=== PATIENT | male | born 1990 | race African-American/Black ===

== ENCOUNTER 2024-09-09 12:43 | Inpatient (IN) | payer MEDICAID, OTHER ==
[~2024-09-09] VITALS: Ht 182.9 cm; Wt 93.2 kg
[~2024-09-09 12:43] MED LIST: BENZ1TAB42 PO; MULTTAB4 PO; RISP1TAB21 PO
[2024-09-09 13:50] LABS: HEMATOCRIT 46.5 % (42.0-52.0); HEMOGLOBIN 15.9 g/dl (13.5-17.5); MEAN CORPUSCULAR HEMOGLOBIN 31.9 pg (27.0-33.0); MEAN CORPUSCULAR HGB CONC 34.2 g/dl (32.0-36.5); MEAN CORPUSCULAR VOLUME 93.2 fl (80.0-96.0); PLATELET COUNT, AUTOMATED 265 10^3/uL (150-450); RED BLOOD COUNT 4.99 10^6/uL (4.30-6.10); WHITE BLOOD COUNT 8.2 10^3/uL (4.0-10.0)
[2024-09-09 14:08] LABS: ETHYL ALCOHOL (ETHANOL) < 0.003 % (0.000-0.010)
[2024-09-09 14:10] LABS: ALBUMIN 4.2 G/DL (3.2-5.2); ALKALINE PHOSPHATASE 48 U/L (40-129); ALT/SGPT 44 U/L (7.0-40); AST/SGOT 32 U/L (<34); BILIRUBIN,DIRECT 0.3 MG/DL (<0.4); BILIRUBIN,TOTAL 0.9 MG/DL (0.3-1.2); BLOOD UREA NITROGEN 12 MG/DL (9-23); CALCIUM LEVEL 10.1 MG/DL (8.5-10.1); CARBON DIOXIDE LEVEL 28 MMOL/L (20-31); CHLORIDE LEVEL 102 MMOL/L (98-107); CREATININE FOR GFR 0.95 MG/DL (0.70-1.30); GLOMERULAR FILTRATION RATE > 60.0 (>60); GLUCOSE, FASTING 99 MG/DL (60-100); POTASSIUM SERUM 4.3 MMOL/L (3.5-5.1); SALICYLATE LEVEL < 3.0 MG/DL (<30); SODIUM LEVEL 137 MMOL/L (136-145); TOTAL PROTEIN 7.4 G/DL (5.7-8.2)
[2024-09-09 14:12] LABS: THYROID STIMULATING HORMONE 1.233 uIU/ML (0.55-4.78)
[2024-09-09 17:37] LABS: AMPHETAMINES LEVEL URINE NEGATIVE (NEGATIVE); BARBITURATES URINE NEGATIVE (NEGATIVE); BENZODIAZEPINES URINE NEGATIVE (NEGATIVE); COCAINE METABOLITE URINE NEGATIVE (NEGATIVE); METHADONE URINE NEGATIVE (NEGATIVE); OPIATES URINE NEGATIVE (NEGATIVE); PHENCYCLIDINE URINE NEGATIVE (NEGATIVE)
[2024-09-09 17:43] LABS: CANNABINOIDS URINE POSITIVE (NEGATIVE)
[2024-09-09] MEDS ORDERED: MAALOX 30 ML SUSP *UDC PO PRN (18:40)
[2024-09-09] MEDS ORDERED: IBUPROFEN 400MG TAB PO PRN (18:40)
[2024-09-09] MEDS ORDERED: MOM 30ML SUSPENSION UDC PO PRN (18:40)
[2024-09-09] MEDS ORDERED: ACETAMINOPHEN 325 MG TAB PO PRN (18:40)
[2024-09-09] MEDS ORDERED: HOME MED LIST COMPLETE! XX SCH (21:25)
[2024-09-09] MEDS: traZODone 50 MG TAB PO PRN (22:43)
[2024-09-09] MEDS: diphenhydrAMINE 25MG CAP PO PRN (22:43)
[2024-09-09] MEDS: OLANZapine ORAL DISINTEGRATING TAB 5MG PO PRN (22:57)
[2024-09-10] MEDS: SODIUM CHLORIDE NASAL 0.65% SPRAY BTL (OCEAN) PRN (08:52)
[2024-09-10 15:32] VITALS: BP 145/83; TEMP 97.2; O2SAT 100
[2024-09-11 16:48] VITALS: BP 124/67; TEMP 97.3; O2SAT 99
[2024-09-12 06:07] VITALS: BP 158/98; TEMP 97.1; O2SAT 96
[2024-09-12] MEDS: ARIPiprazole 10 MG TAB PO SCH (10:40)
[2024-09-12 15:54] VITALS: BP 135/85; TEMP 98.4; O2SAT 99
[2024-09-13 06:18] VITALS: BP 156/73; TEMP 97.5; O2SAT 100
[2024-09-13 15:12] VITALS: BP 130/94; TEMP 97.7; O2SAT 100
[2024-09-13] MEDS: OLANZapine ORAL DISINTEGRATING TAB 5MG PO SCH (21:00)
[2024-09-14 15:18] VITALS: BP 154/79; TEMP 97; O2SAT 99
[2024-09-15 06:17] VITALS: BP 143/100; TEMP 98.3; O2SAT 98
[2024-09-15 17:41] VITALS: BP 134/70; TEMP 97.9; O2SAT 99
[2024-09-16 06:24] VITALS: BP 137/72; TEMP 97.6; O2SAT 99
[2024-09-16 15:41] VITALS: BP 127/74; TEMP 97; O2SAT 100
[2024-09-17 06:30] VITALS: BP 149/78; TEMP 96.7; O2SAT 100
[2024-09-17 15:17] VITALS: BP 120/70; TEMP 97.3; O2SAT 100
[2024-09-18 06:32] VITALS: BP 129/75; TEMP 97.6; O2SAT 99
[2024-09-18 15:11] VITALS: BP 131/83; TEMP 98.1; O2SAT 98
[2024-09-19 06:46] VITALS: BP 132/80; TEMP 97.2; O2SAT 99
== END 2024-09-19 11:11 | disposition home or self-care (01) | DRG 751 ==
LOC: M ED 12:43 → M ED INP 18:36 → M PSY 20:41
PROVIDERS: ADMIT Psychiatry & Neurology Psychiatry; ATTEND Psychiatry & Neurology Psychiatry
DX: F29 Unspecified psychosis not due to a substance or known physiological condition (principal); Z56.0 Unemployment, unspecified; Z91.030 Bee allergy status

== ENCOUNTER → 2024-10-11 | Outpatient (REF) | payer OTHER ==
[2024-10-11 17:46] LABS: ALBUMIN 4.1 G/DL (3.2-5.2); ALKALINE PHOSPHATASE 54 U/L (40-129); ALT/SGPT 43 U/L (7.0-40); AST/SGOT 14 U/L (<34); BILIRUBIN,TOTAL 0.5 MG/DL (0.3-1.2); BLOOD UREA NITROGEN 17 MG/DL (9-23); CALCIUM LEVEL 10.3 MG/DL (8.5-10.1); CARBON DIOXIDE LEVEL 31 MMOL/L (20-31); CHLORIDE LEVEL 103 MMOL/L (98-107); CHOLESTEROL LEVEL 222 MG/DL (<200); CHOLESTEROL RISK RATIO 3.31 (<5); FREE T4 1.19 NG/DL (0.89-1.76); GLOMERULAR FILTRATION RATE > 60.0 (>60); GLUCOSE, FASTING 85 MG/DL (60-100); HDL CHOLESTEROL 66.9 MG/DL (>40); LDL CHOLESTEROL 122.5 MG/DL (<100); NON-HDL-C 155.1 MG/DL; POTASSIUM SERUM 5.1 MMOL/L (3.5-5.1); SODIUM LEVEL 138 MMOL/L (136-145); THYROID STIMULATING HORMONE 1.268 uIU/ML (0.55-4.78); TOTAL PROTEIN 7.5 G/DL (5.7-8.2); TRIGLYCERIDES LEVEL 163 MG/DL (<150)
== END ==
LOC: M SFHCCLAY 09:55
PROVIDERS: ATTEND Physician Assistant
DX: Z00.00 Encounter for general adult medical examination without abnormal findings (principal)

== ENCOUNTER → 2025-10-12 | Outpatient (REF) | payer OTHER ==
[2025-10-12 17:41] LABS: ALT/SGPT 72 U/L (7.0-40); AST/SGOT 26 U/L (<34); CALCIUM LEVEL 9.8 MG/DL (8.5-10.1); CARBON DIOXIDE LEVEL 32 MMOL/L (20-31); CHLORIDE LEVEL 103 MMOL/L (98-107); CHOLESTEROL LEVEL 206 MG/DL (<200); CHOLESTEROL RISK RATIO 4.22 (<5); CREATININE FOR GFR 0.86 MG/DL (0.70-1.30); GLOMERULAR FILTRATION RATE > 90.0 (>60); LDL CHOLESTEROL 131.6 MG/DL (<100); NON-HDL-C 157.2 MG/DL; POTASSIUM SERUM 4.3 MMOL/L (3.5-5.1); SODIUM LEVEL 143 MMOL/L (136-145); TRIGLYCERIDES LEVEL 128 MG/DL (<150)
[2025-10-12 18:04] LABS: ESTIMATED AVERAGE GLUCOSE 100.0 MG/DL (60-110)
== END ==
LOC: M SFHCCLAY 10:42
PROVIDERS: ATTEND Physician Assistant
DX: Z00.00 Encounter for general adult medical examination without abnormal findings (principal); F60.0 Paranoid personality disorder

== ENCOUNTER → 2025-10-19 | Outpatient (REF) | payer OTHER ==
[2025-10-19 13:17] LABS: IRON (FE) 120 UG/DL (65-175); PERCENT SATURATION 38.7 % (19.7-50.0)
[2025-10-19 13:58] LABS: HEPATITIS C VIRUS ABY INDEX < 0.02 INDEX (<0.8)
== END ==
LOC: M SFHCCLAY 07:31
PROVIDERS: ATTEND Physician Assistant
DX: R74.01 Elevation of levels of liver transaminase levels (principal)